=== PATIENT | male | born 1995 | race Caucasian/White ===

== ENCOUNTER 2017-03-17 15:30 | Emergency (ER) | payer OTHER ==
[2017-03-17] MEDS ORDERED: KETOROLAC 30 MG/ML VIAL. IV ONE (16:30)
[2017-03-17 16:32] LABS: BASO % 1 % (0-3); EOS # 0.5 x10^3/uL (0.0-0.7); EOS % 7 % (0-3); HEMATOCRIT 42.8 % (39.0-53.0); HEMOGLOBIN 14.3 g/dL (13.0-17.5); LYMPH # 2.7 x10^3/uL (1.0-4.8); LYMPH % 36 % (24-48); MEAN CORPUSCULAR HEMOGLOBIN 30 pg (25-35); MEAN CORPUSCULAR HGB CONC 33 g/dL (31-37); MEAN CORPUSCULAR VOLUME 90 fL (79-100); MONO # 0.6 x10^3/uL (0.0-1.1); MONO % 8 % (0-9); NEUT # 3.7 x10^3uL (1.8-7.7); NEUT % 49 % (31-73); PLATELET COUNT 313 x10^3/uL (140-400); RED BLOOD COUNT 4.78 x10^6/uL (4.30-5.70); RED CELL DISTRIBUTION WIDTH 13.5 % (11.5-14.5); WHITE BLOOD COUNT 7.6 x10^3/uL (4.0-11.0)
[2017-03-17 16:42] LABS: ALBUMIN 4.1 g/dL (3.4-5.0); ALBUMIN/GLOBULIN RATIO 1.4 (1.0-1.7); CALCIUM 9.1 mg/dL (8.5-10.1); CREATININE 1.2 mg/dL (0.7-1.3); TOTAL BILIRUBIN 0.4 mg/dL (0.2-1.0)
--- NOTE | 2017-03-17 17:47 | PHYS DOC ---
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 Patient has been eating his normal meals there hasn't been any vomiting, diarrhea, fevers, chills. No migrational pain. Patient did not sustain any direct trauma this morning. No sick contacts no recent travel Review of Systems Review of Systems Constitutional: Denies fever or chills or anorexia HENT: Denies nasal congestion or sore throat [] Respiratory: Denies cough or shortness of breath [] Cardiovascular: No chest pain GI: Abdominal pain in the upper and middle abdomen : Denies dysuria or hematuria [] Musculoskeletal: Denies back pain or joint pain [] Integument: Denies rash or skin lesions [] Neurologic: Denies headache, focal weakness or sensory changes [] Current Medications Current Medications Current Medications Medications (Trade) Dose Ordered Sig/Almaz Start Time Stop Time Status Last Admin Dose Admin Ketorolac Tromethamine (Toradol) 30 mg 1X ONCE 03/17/17 16:30 03/17/17 16:54 DC 03/17/17 16:46 30 MG Allergies Allergies Allergies Coded Allergies Type Severity Reaction Last Updated Verified No Known Drug Allergies 03/17/17 No Physical Exam Physical Exam Constitutional: Well developed, well nourished, no acute distress, non-toxic appearance. Not ill-appearing HENT: Normocephalic, atraumatic, oropharynx moist, no oral exudates, nose normal. [] Eyes: EOMI, conjunctiva normal, no discharge. [] Neck: Normal range of motion, taken midline[] Cardiovascular:Heart rate regular rhythm, no murmur equal pulses, normal perfusion Lungs & Thorax: Bilateral breath sounds clear to auscultation, no tachypnea Abdomen: Bowel sounds normal, soft, mild tenderness periumbilical area without guarding or rebound no masses, no pulsatile masses. [] Skin: Warm, dry, no erythema, no rash. [] Back: No tenderness, no CVA tenderness. [] Extremities: No tenderness, no cyanosis, , ROM intact, no edema. [] Neurologic: Alert and oriented X 3, normal motor function,no focal deficits noted. [] Psychologic: Affect normal, judgement normal, mood normal. [] Current Patient Data Vital Signs Vital Signs Date Time Temp Pulse Resp B/P (MAP) Pulse Ox O2 Delivery O2 Flow Rate FiO2 03/17/17 15:45 98.0 73 16 100 Room Air Lab Results Laboratory Tests Test 03/17/17 15:55 White Blood Count 7.6 x10^3/uL (4.0-11.0) Red Blood Count 4.78 x10^6/uL (4.30-5.70) Hemoglobin 14.3 g/dL (13.0-17.5) Hematocrit 42.8 % (39.0-53.0) Mean Corpuscular Volume 90 fL (79-100) Mean Corpuscular Hemoglobin 30 pg (25-35) Mean Corpuscular Hemoglobin Concent 33 g/dL (31-37) Red Cell Distribution Width 13.5 % (11.5-14.5) Platelet Count 313 x10^3/uL (140-400) Neutrophils (%) (Auto) 49 % (31-73) Lymphocytes (%) (Auto) 36 % (24-48) Monocytes (%) (Auto) 8 % (0-9) Eosinophils (%) (Auto) 7 % (0-3) H Basophils (%) (Auto) 1 % (0-3) Neutrophils # (Auto) 3.7 x10^3uL (1.8-7.7) Lymphocytes # (Auto) 2.7 x10^3/uL (1.0-4.8) Monocytes # (Auto) 0.6 x10^3/uL (0.0-1.1) Eosinophils # (Auto) 0.5 x10^3/uL (0.0-0.7) Basophils # (Auto) 0.0 x10^3/uL (0.0-0.2) Sodium Level 142 mmol/L (136-145) Potassium Level 4.0 mmol/L (3.5-5.1) Chloride Level 105 mmol/L (98-107) Carbon Dioxide Level 28 mmol/L (21-32) Anion Gap 9 (6-14) Blood Urea Nitrogen 16 mg/dL (8-26) Creatinine 1.2 mg/dL (0.7-1.3) Estimated GFR (Cockcroft-Gault) 78.0 BUN/Creatinine Ratio 13 (6-20) Glucose Level 83 mg/dL (70-99) Calcium Level 9.1 mg/dL (8.5-10.1) Total Bilirubin 0.4 mg/dL (0.2-1.0) Aspartate Amino Transferase (AST) 14 U/L (15-37) L Alanine Aminotransferase (ALT) 16 U/L (16-63) Alkaline Phosphatase 59 U/L (46-116) Total Protein 7.0 g/dL (6.4-8.2) Albumin 4.1 g/dL (3.4-5.0) Albumin/Globulin Ratio 1.4 (1.0-1.7) EKG EKG [] Radiology/Procedures Radiology/Procedures [] Course & Med Decision Making Course & Med Decision Making Pertinent Labs and Imaging studies reviewed. (See chart for details) 1744 patient has remained in no distress in the whole ED stay. My suspicions for a significant intra-abdominal process whether it be vascular, infectious or other sorts is very low at this time. Given the paucity findings both on physical exam and the normal vital signs I do not believe the patient requires CT imaging of his abdomen at this time. Strict return precautions have been Discussed with the patient will agrees to follow-up as directed. [] Dragon Disclaimer Dragon Disclaimer This chart was dictated in whole or in part using Voice Recognition software in a busy, high-work load, and often noisy Emergency Department environment. It may contain unintended and wholly unrecognized errors or omissions. Departure Departure: Impression: Primary Impression: Abdominal pain Disposition: HOME, SELF-CARE Condition: STABLE Referrals: PCP,UNKNOWN (PCP) Patient Instructions: Abdominal Pain (Nonspecific) Additional Instructions: you will be getting a prescription for Naprosyn and levsin please take as directed. If the pain worsens or new concerning symptoms develop please return to the ED immediately. Please follow with your primary care provider for recheck and reevaluation in 2 days. Serenity CASTANO MD Mar 17, 2017 17:47
[2017-03-17 17:55] VITALS: BP 115/48
== END 2017-03-17 17:55 | disposition home or self-care (01) ==
LOC: ER 15:34
DX: R10.33 Periumbilical pain (principal)
CPT/HCPCS: 36415; 80053; 85025; 96374; 99284; J1885

== ENCOUNTER 2017-05-28 03:32 | Emergency (ER) | payer OTHER ==
[~2017-05-28] VITALS: Ht 172.7 cm; Wt 74.1 kg
[2017-05-28 03:32] VITALS: BP 125/78
[2017-05-28] MEDS ORDERED: AZIT250T PO (04:14)
[2017-05-28] MEDS ORDERED: BENZ100C PO (04:14)
--- NOTE | 2017-05-28 04:15 | PHYS DOC ---
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 Patient states he's had worsening nighttime cough for the past 7-10 days. He denies any chest pain no fever chills sweats or body aches no nasal drainage or sore throat. Cough is nonproductive, patient also denies any GERD symptoms. He complains of posttussive emesis times one tonight, states his cough keeps him awake. No pre-arrival treatment patient is normally healthy immunizations are up -to-date. ED vital signs are stable. Timing/Duration: other Severity: moderate Modifying Factors: improves with other Associated Symptoms: cough, nausea/vomiting Allergies: Coded Allergies: No Known Drug Allergies (Unverified , 03/17/17) Past Medical History Medical History: no pertinent history Surgical History: noncontributory Social History Smoker: non-smoker Alcohol: none Drugs: none Review of Systems Constitutional: denies chills, denies diaphoresis, denies malaise Respiratory: see HPI, cough, denies orthopnea, denies shortness of breath, denies wheezing Cardiovascular: denies chest pain, denies palpitations, denies syncope Gastrointestinal: see HPI, denies abdominal pain, denies diarrhea, denies nausea Genitourinary: denies dysuria, denies frequency, denies hematuria Musculoskeletal: denies back pain, denies joint swelling, denies neck pain Psychiatric/Neurological: denies headache, denies numbness, denies paresthesia Hematologic/Lymphatic: denies blood clots, denies easy bleeding, denies easy bruising Physical Exam General Appearance: WD/WN, no apparent distress Ear, Nose, Throat: hearing grossly normal, normal ENT inspection, normal pharynx Neck: non-tender, supple Respiratory: chest non-tender, normal breath sounds, no respiratory distress Cardiovascular: normal peripheral pulses, regular rate, rhythm Back: no CVA tenderness, no vertebral tenderness Extremities: non-tender, normal inspection 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 Return to ED with new or changing symptoms. DONNELL GARCIA DO May 28, 2017 04:15
[2017-05-28] MEDS ORDERED: IPRATRPIUM/ALBUTEROL 0.5/2.5MG 3 ML NEBU. NEB ONE (04:30)
[2017-05-28] MEDS ORDERED: BENZONATATE 100 MG CAPSULE. PO ONE (04:30)
[2017-05-28] MEDS ORDERED: AZITHROMYCIN 250 MG TABLET. PO ONE (04:30)
== END 2017-05-28 04:23 | disposition home or self-care (01) ==
LOC: ER 03:32
DX: R05 Cough (principal); R11.10 Vomiting, unspecified
CPT/HCPCS: 94250; 94640; 99283; J0456; J7620

== ENCOUNTER → 2017-06-12 | Outpatient (CLI) | payer OTHER ==
[2017-05-28 03:32] VITALS: BP 125/78
[~2017-06-12] MED LIST: AZIT250T PO; BENZ100C PO
--- NOTE | 2017-06-12 16:34 | RAD ---
Nuclear medicine bone scan Technique: Lower left anterior rib pain since injury on May 22. Technique: After injecting 25 mCi of technetium 99m MDP, planar images were obtained in multiple projections. Comparison: None Findings: Single focus of increased uptake seen in the upper sternum. No other areas of abnormal radiotracer uptake. Impression: 1. No evidence of osteoblastic process in the left ribs to suggest fracture. 2. Focus of activity in the upper sternum may represent a fracture. Correlate with sternal plain films.
== END | disposition home or self-care (01) ==
LOC: NM 10:18
PROVIDERS: ATTEND Family Medicine
DX: R07.82 Intercostal pain (principal)
CPT/HCPCS: 78300; 96374; A9503

== ENCOUNTER 2019-04-30 16:23 | Emergency (ER) | payer OTHER ==
[~2019-04-30] VITALS: Ht 172.7 cm; Wt 72.6 kg
[2019-04-30] MEDS ORDERED: PRED20TA PO (16:39)
--- NOTE | 2019-04-30 16:39 | PHYS DOC ---
Past History Past Medical History: No Pertinent History Past Surgical History: No Surgical History Smoking: Non-smoker Alcohol Use: None Drug Use: None Adult General Chief Complaint Chief Complaint: SHORTNESS OF BREATH HPI HPI 23-year-old male presents with one-week history of nasal congestion with productive cough. Reports subjective fever/chills. Denies known sick contacts. Denies trauma. Denies leg swelling or calf tenderness. Denies chest pain. Review of Systems Review of Systems Constitutional: Reports subjective fever and chills Eyes: Denies redness or eye pain HENT: Reports nasal congestion and sore throat Respiratory: Reports productive cough; denies shortness of breath Cardiovascular: Denies chest pain or palpitations GI: Denies abdominal pain, nausea, or vomiting : Denies dysuria or hematuria Musculoskeletal: Denies back pain or joint pain Integument: Denies rash or skin lesions Neurologic: Denies headache, focal weakness or sensory changes Complete systems were reviewed and found to be within normal limits, except as documented in this note. Current Medications Current Medications Current Medications Medications (Trade) Dose Ordered Sig/Almaz Start Time Stop Time Status Last Admin Dose Admin Dexamethasone (Decadron) 10 mg 1X ONCE 04/30/19 16:45 04/30/19 16:46 Allergies Allergies Allergies Coded Allergies Type Severity Reaction Last Updated Verified No Known Drug Allergies 03/17/17 No Physical Exam Physical Exam Constitutional: Well developed, well nourished, no acute distress, non-toxic appearance HENT: Normocephalic, atraumatic, oropharynx moist, TMs clear, nasal congestion noted Eyes: Conjunctiva normal, no discharge Neck: Normal range of motion, no midline tenderness, supple Cardiovascular: Heart rate normal, regular rhythm Lungs & Thorax: Bilateral breath sounds clear to auscultation, diminished at bases, no wheezing Skin: Warm, dry, no erythema, no rash Extremities: No tenderness, ROM intact, no edema Neurologic: Alert and oriented X 3, no focal deficits noted Psychologic: Affect normal, judgement normal EKG EKG [] Radiology/Procedures Radiology/Procedures [] Course & Med Decision Making Course & Med Decision Making Presents with history of present illness and physical exam consistent for bronchitis. Symptomatic treatment provided with oral steroid. Vital signs stable. Lungs clear to auscultation. Patient stable for discharge with outpatient follow-up with PCP. Discussed findings and plan with patient, who acknowledges understanding and agreement. Dragon Disclaimer Cecile Disclaimer This electronic medical record was generated, in whole or in part, using a voice recognition dictation system. Departure Departure: Impression: Primary Impression: Bronchitis Disposition: 01 HOME, SELF-CARE Condition: STABLE Referrals: PCPFLAKO (PCP) Patient Instructions: Acute Bronchitis, [id number] Scripts Prednisone (PREDNISONE) 20 Mg Tablet 2 TAB PO DAILY for Bronchitis, #8 TAB Start this prescription tomorrow, Saturday05/01/19 Prov: SEAN WOOD DO 04/30/19 SEAN WOOD DO Apr 30, 2019 16:39
[2019-04-30 16:40] VITALS: BP 125/77
[2019-04-30] MEDS ORDERED: DEXAMETHASONE 4 MG TABLET PO ONE (16:45)
== END 2019-04-30 16:50 | disposition home or self-care (01) ==
LOC: ER 16:23
DX: J40 Bronchitis, not specified as acute or chronic (principal)
CPT/HCPCS: 99283; J8540

== ENCOUNTER 2019-06-30 10:50 | Emergency (ER) | payer OTHER ==
[~2019-06-30] VITALS: Ht 172.7 cm; Wt 68.9 kg
[~2019-06-30 10:50] MED LIST changes: +PRED20TA PO
[2019-06-30 11:00] VITALS: BP 111/53
[2019-06-30] MEDS ORDERED: TRAM50TA PO (11:15)
--- NOTE | 2019-06-30 11:27 | RAD ---
WRIST 3V RIGHT History: Trauma. Pain. Technique: 3 views right wrist. Comparison: None. Findings: Normal alignment. No fracture. Soft tissues unremarkable. Impression: 1. No acute osseous abnormality. Electronically signed by: Mike Gerardo DO (06/30/2019 11:24 AM) [id number]
--- NOTE | 2019-06-30 13:52 | PHYS DOC ---
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 Injury occurred yesterday during practice. Patient reports soft tissue tenderness pain over dorsum of left hand and wrist. He is worse with palpation and range of motion. There is no obvious deformity. No other acute symptoms or complaints.[] Review of Systems Review of Systems ROS as per HPI All other systems were reviewed and found to be within normal limits, except as documented in this note. Allergies Allergies Allergies Coded Allergies Type Severity Reaction Last Updated Verified No Known Drug Allergies 03/17/17 No Physical Exam Physical Exam Constitutional: Well developed, well nourished, no acute distress, non-toxic appearance. [] HENT: Normocephalic, atraumatic, bilateral external ears normal, oropharynx moist, no oral exudates, nose normal. [] Eyes: PERRLA, EOMI, conjunctiva normal, no discharge. [] Neck: Normal range of motion, no tenderness, supple, no stridor. [] Extremities: Right hand/wrist, no deformity soft tissue swelling noted. Soft tissue tenderness over dorsum of left hand and wrist some localized tenderness over posterior thumb. No deformity.. [] Neurologic: Alert and oriented X 3, left wrist, no motor weakness or loss of sensation.. [] Psychologic: Affect normal, judgement normal, mood normal. [] Current Patient Data Vital Signs Vital Signs Date Time Temp Pulse Resp B/P (MAP) Pulse Ox O2 Delivery O2 Flow Rate FiO2 06/30/19 11:00 98.4 48 16 98 Room Air EKG EKG [] Radiology/Procedures Radiology/Procedures [Left wrist/hand: No obvious displaced fracture per radiology report] Course & Med Decision Making Course & Med Decision Making Pertinent Labs and Imaging studies reviewed. (See chart for details) [Patient placed in splint recommend supportive care with sports medicine follow- up.] Dragon Disclaimer Dragon Disclaimer This electronic medical record was generated, in whole or in part, using a voice recognition dictation system. Departure Departure: Impression: Primary Impression: Sprain of right wrist Disposition: HOME, SELF-CARE Condition: STABLE Patient Instructions: Wrist Sprain with Rehab-SportsMed Additional Instructions: Please wear wrist splint to right hand use. Apply ice to affected area take ibuprofen for pain and tramadol as needed for additional relief. Follow-up with your PCP or sports med physician in one week for reevaluation and clearance of when to return to sports. Scripts Tramadol Hcl (TRAMADOL HCL) 50 Mg Tablet 15 MG PO PRN Q6HRS PRN for PAIN, #15 TAB Prov: MAURY KAYE DO 06/30/19 MAURY KAYE DO Jun 30, 2019 13:52
== END 2019-06-30 11:24 | disposition home or self-care (01) ==
LOC: ER 10:50
DX: S63.501A Unspecified sprain of right wrist, initial encounter (principal); W18.39XA Other fall on same level, initial encounter; Y93.89 Activity, other specified; Y92.89 Other specified places as the place of occurrence of the external cause; Y99.8 Other external cause status
CPT/HCPCS: 29125; 73110; 99284

== ENCOUNTER 2020-04-14 02:31 | Emergency (ER) | payer OTHER ==
[~2020-04-14] VITALS: Ht 172.7 cm; Wt 77.1 kg
[2020-04-14 02:31] VITALS: BP 130/84
[~2020-04-14 02:31] MED LIST changes: +TRAM50TA PO
[2020-04-14] MEDS ORDERED: FAMOTIDINE 20 MG TABLET PO ONE (03:00)
[2020-04-14] MEDS ORDERED: DEXAMETHASONE SOD PHOS 10 MG/ML VIAL. IM ONE (03:00)
[2020-04-14] MEDS ORDERED: PRED-220 PO (03:01)
--- NOTE | 2020-04-14 03:01 | PHYS DOC ---
Past History Past Medical History: No Pertinent History Past Surgical History: No Surgical History Smoking: Non-smoker Alcohol Use: None Drug Use: None General Adult EDM: Chief Complaint: Rash HPI: HPI: 24-year-old male presents with rash. He first noticed a rash in his armpit region yesterday. It started out as small dots which he thought were bug bites. It then "exploded into a rash with large hives and swelling. The axillary reg ion is less intense at this time, but he now has areas that is spread to his groin, back, chest, abdomen, upper arms and upper legs. He has no idea what this could be. He does monitor with his girlfriend sometimes who occasionally uses a different kind of detergent. She cannot think of anything else that he is changed. He has not been camping or anywhere else for unusual exposures. No contact with plants. He denies fever or chills. Review of Systems: Review of Systems: Constitutional: Denies fever or chills Eyes: Denies change in visual acuity HENT: Denies nasal congestion or sore throat Respiratory: Denies cough or shortness of breath Cardiovascular: Denies chest pain or edema GI: Denies abdominal pain, nausea, vomiting, bloody stools or diarrhea : Denies dysuria Musculoskeletal: Denies back pain or joint pain Integument: Rash Neurologic: Denies headache, focal weakness or sensory changes Endocrine: Denies polyuria or polydipsia Lymphatic: Denies swollen glands Psychiatric: Denies depression or anxiety Heart Score: Risk Factors: Risk Factors: DM, Current or recent (<one month) smoker, HTN, HLP, family history of CAD, obesity. Risk Scores: Score 0 - 3: 2.5% MACE over next 6 weeks - Discharge Home Score 4 - 6: 20.3% MACE over next 6 weeks - Admit for Clinical Observation Score 7 - 10: 72.7% MACE over next 6 weeks - Early Invasive Strategies Allergies: Allergies: Allergies Coded Allergies Type Severity Reaction Last Updated Verified No Known Drug Allergies 03/17/17 No Physical Exam: PE: Constitutional: Well developed, well nourished, no acute distress, non-toxic appearance. [] HENT: Normocephalic, atraumatic, bilateral external ears normal, oropharynx moist, no oral exudates, nose normal. [] Eyes: PERRLA, EOMI, conjunctiva normal, no discharge. [] Neck: Normal range of motion, no tenderness, supple, no stridor. [] Cardiovascular: Heart rate regular rhythm, no murmur [] Lungs & Thorax: Bilateral breath sounds clear to auscultation [] Abdomen: Bowel sounds normal, soft, no tenderness, no masses, no pulsatile masses. [] Skin: Erythematous patches consistent with urticaria all over the chest, abdomen, back, bilateral upper and bilateral lower extremities. [] Back: No tenderness, no CVA tenderness. [] Extremities: No tenderness, no cyanosis, no clubbing, ROM intact, no edema. [] Neurologic: Alert and oriented X 3, normal motor function, normal sensory function, no focal deficits noted. [] Psychologic: Affect normal, judgement normal, mood normal. [] EKG: EKG: [] Radiology/Procedures: Radiology/Procedures: [] Course & Med Decision Making: Course & Med Decision Making Pertinent Labs and Imaging studies reviewed. (See chart for details) The patient does appear to be having allergic reaction. Not sure what he is allergic to. It could be the detergent. It appears as though areas that got warm and potentially sweaty broke out first. I will treat him with 10 mg of Decadron IM and 20 mg of Pepcid p.o. Have advised that he can take Benadryl at home. I will treat him for another 8 days with prednisone. He is stable for discharge at this time. [] Dragon Disclaimer: Cecile Disclaimer: This electronic medical record was generated, in whole or in part, using a voice recognition dictation system. Departure Departure: Impression: Primary Impression: Allergic reaction to chemical substance Qualified Codes: T65.91XA - Toxic effect of unspecified substance, accidental (unintentional), initial encounter Disposition: HOME/RESIDENCE PRIOR TO ADM Condition: STABLE Referrals: PCP,NO (PCP) Patient Instructions: Allergies, Generic Scripts Prednisone (PREDNISONE) 10 Mg Tablet 10 MG PO UD for PREDNISONE TAPER, #20 TAB 0 Refills Take 4 tablets by mouth daily for 2 days, then take 3 tablets by mouth daily for 2 days, then take 2 tablet by mouth daily for 2 days, then take 1 tablet by mouth daily for 2 days, then stop. Prov: MAURY CEJA DO 04/14/20 MAURY CEJA DO Apr 14, 2020 03:01
== END 2020-04-14 03:10 | disposition home or self-care (01) ==
LOC: ER 02:31
DX: L50.9 Urticaria, unspecified (principal); T50.905A Adverse effect of unspecified drugs, medicaments and biological substances, initial encounter; Y92.89 Other specified places as the place of occurrence of the external cause
CPT/HCPCS: 96372; 99283; J1100

== ENCOUNTER 2021-04-20 17:55 | Emergency (ER) | payer OTHER ==
[~2021-04-20] VITALS: Ht 172.7 cm; Wt 77.2 kg
[~2021-04-20 17:55] MED LIST changes: +PRED-220 PO
[2021-04-20] MEDS ORDERED: KETOROLAC 15 MG/ML VIAL. IM PRN (18:45)
--- NOTE | 2021-04-20 19:10 | RAD ---
CT head without contrast: Reason for examination: Trauma. Unable to open mouth. Jaw pain. Helical images were obtained through the brain with no contrast administered. Ventricular systems are symmetric and not dilated. No midline shift is seen. There is no evidence of intracranial hemorrhage, infarct, mass or edema. No abnormalities of seen at the orbits. The paranasa l sinuses and mastoid air cells are clear. No acute abnormality seen in the skull. IMPRESSION: No acute intracranial abnormality evident. CT cervical spine without contrast: Helical images were obtained through the cervical spine from skull base through the thoracic apices w ith no contrast administered. Reconstruction was performed in sagittal and coronal planes. The C1 ring is intact. The odontoid process appears to be intact and normally centered between the la teral masses of C1. The vertebral bodies of the cervical spine are normally aligned anteriorly and po steriorly. No acute fracture or subluxation is evident. The intervertebral discs are maintained. Ther e is no spinal stenosis. Prevertebral soft tissues are normal. IMPRESSION: No acute abnormality evident in the cervical spine. CT maxillofacial without contrast: Helical images were obtained through the maxillofacial structures with no contrast administered. Billy nstruction was performed in sagittal and coronal planes. The paranasal sinuses are clear and the jones of the sinuses appear to be intact. No abnormalities of seen at the orbits and orbital jones are intact. Zygomatic arches are intact. Nasal bones are intact . No abnormality seen at the mandible or temporomandibular joints. Muscular bundles appear to be inta ct. No gross abnormalities are seen at the parotid or submandibular glands. IMPRESSION: No acute facial bone abnormalities evident. Exposure: One or more of the following individualized dose reduction techniques were utilized for thi s examination: 1. Automated exposure control 2. Adjustment of the mA and/or kV according to patient size 3. Use of iterative reconstruction technique. Electronically signed by: Krista Casey MD (04/20/2021 7:08 PM) LYNNETTE
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
[2021-04-20 19:20] VITALS: BP 126/70
== END 2021-04-20 19:40 | disposition home or self-care (01) ==
LOC: ER 17:55
DX: S00.83XA Contusion of other part of head, initial encounter (principal); R68.84 Jaw pain; X58.XXXA Exposure to other specified factors, initial encounter; Y93.72 Activity, wrestling; Y92.89 Other specified places as the place of occurrence of the external cause; Y99.8 Other external cause status
CPT/HCPCS: 70450; 70486; 72125; 96372; 99285; J1885

== ENCOUNTER → 2021-04-28 | Outpatient (CLI) | payer OTHER ==
[2021-04-20 19:20] VITALS: BP 126/70
--- NOTE | 2021-04-28 17:38 | RAD ---
Right wrist 3 views. HISTORY: Right wrist pain 3 views were taken of the right wrist. There is not evidence of an acute fracture or osseous abnormal ity. IMPRESSION: 1. No acute fracture noted in the right wrist. Electronically signed by: Murray Tavares MD (04/28/2021 5:35 PM) [facility]
== END ==
LOC: DXRAD 17:05
PROVIDERS: ATTEND Nurse Practitioner Family
DX: M25.531 Pain in right wrist (principal)
CPT/HCPCS: 73110